=== PATIENT | female | born 1945 | race Caucasian/White ===

== ENCOUNTER → 2023-03-14 | Outpatient (CLI) | payer MEDICARE, OTHER ==
[~2023-03-14] MED LIST: ASPIRIN 32325 MG/TAB PO; ASPIRIN 81M81 MG/TA2 PO; BIOTIN10000 MC1 PO; CALCIUM 600 MG1 EAC2 PO; CIPRO 250MG TA250 MG PO; COZAAR 25MG25 MG/TAB PO; GLUCOPHAGE XR500 M1 PO; GLUCOPHAGE500 MG/TAB PO; MACRODANTIN25 MG/CA2 PO; MULTIPLE VITAMI1 TA5 PO; PRAVACHOL 20MG20 MG PO; PRINIVIL20 MG PO; VITAMIN B12 781 TAB PO; VITAMINC1000TA PO
== END ==
LOC: COL.RAD 06:51
DX: H47.20 Unspecified optic atrophy (principal)
CPT/HCPCS: A9575

== ENCOUNTER → 2023-06-13 | Outpatient (CLI) | payer MEDICARE, OTHER | LOC: MC.RAD 07:23 | DX: Z12.31 Encounter for screening mammogram for malignant neoplasm of breast (principal) ==